=== PATIENT | female | born 1970 | race Caucasian/White ===

== ENCOUNTER 2017-12-18 08:36 | Outpatient (CLI) | payer BC | END 2017-12-18 08:37 | disposition home or self-care (01) | LOC: BICMAMMO 08:36 | PROVIDERS: ATTEND Family Medicine | DX: Z12.31 Encounter for screening mammogram for malignant neoplasm of breast (principal) | CPT/HCPCS: 77063; 77067 ==

== ENCOUNTER 2018-08-31 12:17 | Emergency (ER) | payer BC ==
[2018-08-31 12:52] LABS: #Basophils 0.1 thou/uL (0.0-0.2); #Eosinphils 0.2 thou/uL (0.0-0.7); #Lymphocytes 3.3 thou/uL (1.20-3.40); #Neutrophils 6.1 thou/uL (1.40-6.50); %Basophils 0.9 % (0.0-1.0); %Eosinophils 1.5 % (0.0-10.0); %Lymphocytes 30.8 % (21.0-51.0); %Monocytes 9.3 % (0.0-10.0); %Neutrophils 57.5 % (42.0-75.0); Hemoglobin 17.4 g/dL (12.0-16.0); Mean Corpuscular HGB CONC 32.7 g/dL (32.0-36.0); Mean Corpuscular Hemoglobin 32.4 pg (27.0-31.0); Mean Corpuscular Volume 99.1 fL (78.0-98.0); Mean Platelet Volume 7.5 fL (7.4-10.4); Platelet Count 342 thou/uL (130-400); Red Blood Cell (RBC) Count 5.37 mill/uL (4.20-5.40); White Blood Cell (WBC) Count 10.7 thou/uL (4.8-10.8)
[2018-08-31 13:14] LABS: ALT (SGPT) 42 U/L (8-55); AST (SGOT) 25 U/L (5-34); Albumin 4.6 g/dL (3.5-5.0); Alkaline Phosphatase 96 U/L (40-150); Anion Gap 17 mmol/L (10-20); BUN (Urea Nitrogen) 13 mg/dL (7.0-18.7); Bilirubin, Total 0.6 mg/dL (0.2-1.2); Calc. Creatinine Clearance 0 mL/min (70-130); Calcium 10.2 mg/dL (7.8-10.44); Carbon Dioxide 24 mmol/L (22-29); Chloride 102 mmol/L (98-107); Estimated GFR-MDRD 73; Globulin 3.2 g/dL (2.4-3.5); Glucose 129 mg/dL (70-105); Lipase 12 U/L (8-78); Potassium 4.1 mmol/L (3.5-5.1); Protein, Total 7.8 g/dL (6.0-8.3); Sodium 139 mmol/L (136-145)
[2018-08-31] MEDS ORDERED: Morphine 4 MG/ML VIAL ONE ×2 (13:20→15:19)
[2018-08-31] MEDS ORDERED: Ondansetron PF 4 MG/2 ML Vial ONE ×2 (13:20→15:19)
[2018-08-31 14:09] LABS: BHCG - Serum Negative (NEGATIVE); Pregs Control Bar Appear? YES (CONTROL BAR)
[2018-08-31 14:10] LABS: Pregs Control Background? CLEAR/WHITE (CLR/WHITE)
[2018-08-31] MEDS ORDERED: Ketorolac Tromethamine 30 MG/ML VIAL ONE (14:12)
[2018-08-31] MEDS ORDERED: Promethazine HCl 25 MG/ML VIAL ONE (14:30)
[2018-08-31 14:42] LABS: Clarity Cloudy (Clear); Leukocyte Unable to Interpret (Negative); Specific Gravity, Urine 1.031 (1.002-1.036); pH, Urine 5.9 (5.0-9.0)
[2018-08-31 14:43] LABS: Bilirubin Unable to Interpret (Negative); Blood, Urine Unable to Interpret (Negative); Glucose, Urine (Dipstick) Unable to Interpret mg/dL (Negative); Nitrite Unable to Interpret (Negative); Protein, Urine (Dipstick) Unable to Interpret mg/dL (Neg-Trace); Urobilinogen UNABLE TO INTERPRET mg/dL (0.2-1.0)
[2018-08-31 14:50] LABS: Bacteria/HPF Rare-Few HPF (None Seen); Hyaline Casts/LPF 0-3 HYALINE CAST LPF (0-3 Hyaline); RBC/HPF 21-50 HPF (0-3); Squamous Epithelial 0-3 HPF (0-3)
--- NOTE | 2018-08-31 15:23 | CT ---
CT ABDOMEN AND PELVIS PERFORMED WITH CONTRAST ENHANCEMENT: Date: 08/31/18 HISTORY: Abdominal pain, nausea, vomiting, and left lower quadrant pain starting this morning. FINDINGS: Lung bases show some gravity-dependent atelectasis. Calcified right hilar lymph nodes are noted. Liver shows some fatty change. The spleen shows several granulomas. Pancreas region is unremarkable. There is some increased attenuation associated with the fundus of the gallbladder. This has the appea tonie of some faint calcifications, but is in a nondependent position, and therefore it would be very unusual for a stone. It may represent some type of small polyp. Right and left adrenal glands are normal in appearance. The right and left kidneys are normal in size . There is some mild dilatation to the left collecting system and ureter related to a 2.0 mm left ure terovesical junction calculus. No renal calculi are seen. No significant periaortic or mesenteric marci nopathy. CT of pelvis was performed with contrast enhancement. The appendix is retrocecal in location and norm al in appearance. There is a mass area within the uterus which appears to represent a fairly large fi broid, probably in the 5.0 cm range. IMPRESSION: 1. 2-3 mm left ureterovesical junction calculus associated with some mild left-sided hydronephrosis and hydroureter. 2. Calcification in fundus region of gallbladder. This is somewhat unusual in appearance for a stone . Ultrasound would be helpful in further assessment on a nonemergent basis. 3. Uterine fibroid. POS: [facility]
[2018-08-31] MEDS ORDERED: ISOVUE-370 76%-LOCM 1 ML ONE (15:43)
[2018-08-31] MEDS ORDERED: cefTRIAXone\\ROCEPHIN 2 GM VIAL ONE (16:23)
[2018-08-31 16:29] LABS: Bilirubin Negative (Negative); Blood, Urine Large (Negative); Glucose, Urine (Dipstick) 100 mg/dL (Negative); Leukocyte Negative (Negative); Nitrite Positive (Negative); Protein, Urine (Dipstick) 30 mg/dL (Neg-Trace); pH, Urine 6.5 (5.0-9.0)
[2018-08-31] MEDS ORDERED: Tamsulosin HCl 0.4 MG CAP PO SCH (16:30)
[2018-08-31 16:32] LABS: Clarity Hazy (Clear)
[2018-08-31 16:38] LABS: Specific Gravity, Urine Greater than 1.060 (1.002-1.036)
[2018-08-31 16:42] LABS: Bacteria/HPF 1+ HPF (None Seen); Hyaline Casts/LPF NONE SEEN LPF (0-3 Hyaline)
[2018-08-31 16:43] LABS: WBC/HPF None Seen HPF (0-3)
== END 2018-08-31 17:20 | disposition home or self-care (01) ==
LOC: ERS 12:17
DX: N13.2 Hydronephrosis with renal and ureteral calculous obstruction (principal); E03.9 Hypothyroidism, unspecified; I10 Essential (primary) hypertension; F17.210 Nicotine dependence, cigarettes, uncomplicated; Z79.899 Other long term (current) drug therapy
CPT/HCPCS: 36415; 51701; 74177; 80053; 81003; 81015; 82550; 83690; 84484; 84703; 85025; 87086; 93005; 96361; 96365; 96367; 96375; 96376; 99406; A4353; J0696; J1885; J2270; J2405; J2550; Q9966